=== PATIENT | male | born 1935 | race Caucasian/White ===

== ENCOUNTER 2019-02-14 15:11 | Emergency (ER) | payer MEDICARE, SELFPAY ==
[2019-02-14 15:30] VITALS: BP 169/93; PULSE 89; RESP 18; TEMP 36.7; O2SAT 95; BMI 24.4
[2019-02-14 15:39] LABS: Basophils % 0.4 % (0.1-2.0); Eosinophils # 0.2 K/mm3 (0.0-0.4); Eosinophils % 2.6 % (0.1-12.0); Hematocrit 40.7 % (42.0-52.0); Hemoglobin 13.7 g/dL (14.1-18.0); Lymphocytes # 1.7 K/mm3 (0.7-4.5); Lymphocytes % 22.4 % (10-50); Mean Corpuscular HGB Conc 33.6 g/dL (31.8-35.4); Mean Corpuscular Hemoglobin 31.2 pg (27.0-31.2); Mean Corpuscular Volume 92.9 fl (80-94); Mean Platelet Volume 7.7 fl (7.4-10.4); Monocytes # 0.5 K/mm3 (0.1-1.0); Monocytes % 6.1 % (1.7-9.3); Neutrophils # 5.1 K/mm3 (1.8-7.8); Neutrophils % 68.5 % (37.0-80.0); Platelet Count 217 K/mm3 (142-424); Red Blood Count 4.38 M/mm3 (4.60-6.20); White Blood Count 7.4 K/mm3 (4.8-10.8)
--- NOTE | 2019-02-14 15:48 | [facility].EDGENADL ---
ED Disposition Clinical Impression: Labyrinthitis Disposition: Home, Self-Care Condition on Discharge: Good Instructions: DI for Labyrinthitis Prescriptions: Meclizine HCl [Meclizine 12.5mg Tab] 12.5 mg PO TID PRN 7 Days #20 tab PRN Reason: Dizziness Referrals: Edwardo Sarkar [Primary Care Provider] - Time of Disposition: 16:26 - Critical Care Critical Care Time: No Attestation: On 02/14/19, the high probability of a clinically significant, sudden or life threatening deterioration of the following system(s) required my full and direct attention, intervention and personal management. The time I documented below is in addition to time spent performing reported procedures but includes the following listed in this critical care notation. Medical Decision Making - Medical Records Medical records reviewed: Yes: I reviewed the patient's medical records. - Sae Inquiry Pt receiving controlled substance: No Sae was queried for this patient: No Vital Signs: 02/14/19 15:30 Temperature 98.1 F Temperature Source Oral Pulse Rate [Right Apical] 89 Respiratory Rate 18 Blood Pressure [Right Arm] 169/93 H Blood Pressure Mean [Right Arm] 118 02 Sat by Pulse Oximetry 95 Oxygen Delivery Method Room Air - Lab Data Lab results reviewed: Yes: I reviewed the patient's lab results. Lab Results 02/14/19 15:25: WBC 7.4, RBC 4.38 L, Hgb 13.7 L, Hct 40.7 L, MCV 92.9, MCH 31.2, MCHC 33.6, RDW 12.0, Plt Count 217, MPV 7.7, Neut % (Auto) 68.5, Lymph % (Auto) 22.4, [place] % (Auto) 6.1, Eos % (Auto) 2.6, Baso % (Auto) 0.4, Neut # (Auto) 5.1, Lymph # (Auto) 1.7, [place] # (Auto) 0.5, Eos # (Auto) 0.2, Baso # (Auto) 0.0 02/14/19 15:25: Sodium 137, Potassium 4.0, Chloride 103, Carbon Dioxide 26, Anion Gap 12.0, BUN 20 H, Creatinine 0.81, Estimated Creat Clear 64, Estimated GFR 91, Est GFR ( Amer) 110, Glucose 154 H, Calcium 9.1, Total Bilirubin 0.4, AST 17, ALT 25, Alkaline Phosphatase 53, Troponin I < 0.02, Total Protein 7.6, Albumin 3.7, Globulin 3.9 H, Albumin/Globulin Ratio 0.9 L 02/14/19 16:29: Urine Color Yellow, Urine Appearance Clear, Urine pH 6.0, Ur Specific [place] 1.020, Urine Protein Negative, Urine Glucose (UA) Negative, Urine Ketones Negative, Urine Blood Negative, Urine Nitrate Negative, Urine Bilirubin Negative, Urine Urobilinogen 0.2, Ur Leukocyte Esterase Negative Result diagrams: 02/14/19 15:25 02/14/19 15:25 Orders (Tests/Meds): ED MEDICATIONS Generic Name Dose Route Start Last Admin Trade Name Freq PRN Reason Stop Dose Admin Sodium Chloride 1,000 mls @ 999 mls/hr 02/14/19 16:30 02/14/19 16:17 Sod Chlor 0.9% 1000ml Bag IV 02/14/19 17:30 999 mls/hr .Q1H1M TITI Administration ORDERS Category Date Time Status UA [Urinalysis and Microscopic] Stat Lab 02/14/19 16:29 Results General Adult HPI - General Chief complaint: Weakness Stated complaint: Weakness, dizziness, cannot stand, legs weak Time Seen by Provider: 02/14/19 15:48 Mode of Arrival: Ambulatory Source of Information: Patient Limitations: No Limitations Description of Symptoms (Recalled from ER Triage Doc. by RN): PT ARRIVED TO THE ED WITH C/O LIGHT-HEADED AND DIZZINESS FOR ABOUT A WEEK. - Related Data Home Medications Medication Instructions Recorded Confirmed aspirin 81 mg tablet,delayed 81 mg PO DAILY tab 01/09/18 01/15/19 release finasteride 5 mg tablet 5 mg PO DAILY tab 01/09/18 01/15/19 jgmcoxkl-vas-ohrji acid 300 tab PO DAILY tab 01/09/18 01/15/19 mcg-lycopene 600 mcg-lutein 300 mcg tablet tamsulosin 0.4 mg capsule 0.4 mg PO DAILY cap 01/09/18 01/15/19 Previous Rx's Medication Instructions Recorded Meclizine HCl [Meclizine 12.5mg 12.5 mg PO TID PRN 7 Days #20 tab 02/14/19 Tab] Allergies Allergy/AdvReac Type Severity Reaction Status Date / Time No Known Allergies Allergy Unknown Uncoded 01/15/19 11:10 [facility] History - Hepatitis A Screen Drug use history?: No High risk se
--- NOTE | 2019-02-14 15:51 | ED_ITS ---
ED Disposition Clinical Impression: Labyrinthitis Disposition: Home, Self-Care Condition on Discharge: Good Instructions: DI for Labyrinthitis Prescriptions: Meclizine HCl [Meclizine 12.5mg Tab] 12.5 mg PO TID PRN 7 Days #20 tab PRN Reason: Dizziness Referrals: Edwardo Sarkar [Primary Care Provider] - Time of Disposition: 16:26 - Critical Care Critical Care Time: No Attestation: On 02/14/19, the high probability of a clinically significant, sudden or life threatening deterioration of the following system(s) required my full and direct attention, intervention and personal management. The time I documented below is in addition to time spent performing reported procedures but includes the following listed in this critical care notation. Medical Decision Making - Medical Records Medical records reviewed: Yes: I reviewed the patient's medical records. - Sae Inquiry Pt receiving controlled substance: No Sae was queried for this patient: No Vital Signs: 02/14/19 15:30 Temperature 98.1 F Temperature Source Oral Pulse Rate [Right Apical] 89 Respiratory Rate 18 Blood Pressure [Right Arm] 169/93 H Blood Pressure Mean [Right Arm] 118 02 Sat by Pulse Oximetry 95 Oxygen Delivery Method Room Air - Lab Data Lab results reviewed: Yes: I reviewed the patient's lab results. Lab Results 02/14/19 15:25: WBC 7.4, RBC 4.38 L, Hgb 13.7 L, Hct 40.7 L, MCV 92.9, MCH 31.2, MCHC 33.6, RDW 12.0, Plt Count 217, MPV 7.7, Neut % (Auto) 68.5, Lymph % (Auto) 22.4, [place] % (Auto) 6.1, Eos % (Auto) 2.6, Baso % (Auto) 0.4, Neut # (Auto) 5.1, Lymph # (Auto) 1.7, [place] # (Auto) 0.5, Eos # (Auto) 0.2, Baso # (Auto) 0.0 02/14/19 15:25: Sodium 137, Potassium 4.0, Chloride 103, Carbon Dioxide 26, Anion Gap 12.0, BUN 20 H, Creatinine 0.81, Estimated Creat Clear 64, Estimated GFR 91, Est GFR ( Amer) 110, Glucose 154 H, Calcium 9.1, Total Bilirubin 0.4, AST 17, ALT 25, Alkaline Phosphatase 53, Troponin I < 0.02, Total Protein 7 .6, Albumin 3.7, Globulin 3.9 H, Albumin/Globulin Ratio 0.9 L 02/14/19 16:29: Urine Color Yellow, Urine Appearance Clear, Urine pH 6.0, Ur Specific [place] 1.020, Urine Protein Negative, Urine Glucose (UA) Negative, Urine Ketones Negative, Urine Blood Negative, Urine Nitrate Negative, Urine Bilirubin Negative, Urine Urobilinogen 0.2, Ur Leukocyte Esterase Negative Result diagrams: 02/14/19 15:25 02/14/19 15:25 Orders (Tests/Meds): ED MEDICATIONS Generic Name Dose Route Start Last Admin Trade Name Freq PRN Reason Stop Dose Admin Sodium Chloride 1,000 mls @ 999 mls/hr 02/14/19 16:30 02/14/19 16:17 Sod Chlor 0.9% 1000ml Bag IV 02/14/19 17:30 999 mls/hr .Q1H1M TITI Administration ORDERS Category Date Time Status UA [Urinalysis and Microscopic] Stat Lab 02/14/19 16:29 Results General Adult HPI - General Chief complaint: Weakness Stated complaint: Weakness, dizziness, cannot stand, legs weak Time Seen by Provider: 02/14/19 15:48 Mode of Arrival: Ambulatory Source of Information: Patient Limitations: No Limitations Description of Symptoms (Recalled from ER Triage Doc. by RN): PT ARRIVED TO THE ED WITH C/O LIGHT-HEADED AND DIZZINESS FOR ABOUT A WEEK. - Relate
[2019-02-14 15:52] LABS: Alanine Aminotransferase 25 U/L (12-78); Albumin Level 3.7 gm/dL (3.4-5.0); Albumin/Globulin Ratio 0.9 (1.1-1.8); Alkaline Phosphatase 53 U/L (46-116); Aspartate Amino Transferase 17 U/L (15-37); Bilirubin,Total 0.4 mg/dL (0.2-1.0); Blood Urea Nitrogen 20 mg/dL (7-18); Calcium 9.1 mg/dL (8.5-10.1); Carbon Dioxide 26 mmol/L (21.0-32.0); Chloride 103 mmol/L (98-107); Creatinine Clearance Estimated 64 mL/min (50-200); Creatinine,Serum 0.81 mg/dL (0.70-1.30); Estimated Glomerular Filt Rate 91 ml/min (>60); GFR (African American) 110 ML/MIN (>60); Globulin 3.9 gm/dl (1.3-3.2); Glucose 154 mg/dL (74-106); Sodium 137 mmol/L (136-145); Total Protein,Serum 7.6 gm/dL (6.4-8.2); Troponin I < 0.02 ng/ml (0.00-0.06)
[2019-02-14 16:07] VITALS: BP 164/87; PULSE 82; O2SAT 96
--- NOTE | 2019-02-14 16:23 | CT_ITS ---
CT head/brain wo con HISTORY: Dizziness, unsteady balance ITS.REASON: dizziness, weakness, fall ORDERING PHYSICIAN: Mohan Gross MD PATIENT AGE: 83 years COMPARISON: None TECHNIQUE: Axial images obtained without contrast. Brain and bone windows reviewed. All CT scans at the facility use one or more dose reduction, viz: automated exposure control, ma/kV adjustment per patient size (including targeted exams where dose is matched to indication, i.e. head), or iterative reconstruction technique. FINDINGS: No midline shift, mass effect, intracranial hemorrhage, hydrocephalus, or extra-axial fluid collection is evident. There is generalized atrophy The calvarium has an unremarkable appearance. No mastoid effusion. No sinus air-fluid levels.. IMPRESSION: No acute intercranial findings, mild generalized atrophy
[2019-02-14 16:30] LABS: Microscopic, Urine URINE MICROSCOPIC (MICROSCOPIC)
[2019-02-14 16:31] LABS: Appearance,Urine CLEAR (Clear); Bilirubin,Urine Negative (Negative); Blood, Urine Negative (Negative); Color,Urine YELLOW (Yellow); Glucose,Urine (UA) Negative (Negative); Ketones,Urine Negative (Negative); Leukocyte Esterase,Urine Negative (Negative); Nitrate,Urine Negative (Negative); Protein,Urine Negative (Negative); Urobilinogen,Urine 0.2 EU/dl (0.2)
[2019-02-14 16:48] VITALS: BP 159/70; PULSE 78; O2SAT 95
[2019-02-14 17:24] VITALS: BP 161/85; PULSE 81; O2SAT 97
[2019-02-14 17:31] LABS: WBC,Urine Occasional #/hpf (0-3)
[2019-02-14 17:32] LABS: Bacteria,Urine Trace /lpf
[2019-02-14 17:41] VITALS: BP 158/73; PULSE 77; O2SAT 97
[2019-02-14 17:57] VITALS: BP 138/66; PULSE 82; RESP 18; TEMP 36.6; O2SAT 100
[2019-02-20 15:20] LABS: POC Glucose,Bedside 171 (70-110)
== END 2019-02-14 17:59 | disposition home or self-care (01) ==
PROVIDERS: Emergency Provider Emergency Medicine; PCP Internal Medicine
DX: H83.03 Labyrinthitis, bilateral (principal)
CPT/HCPCS: 70450; 80053; 81001; 82962; 84484; 85025; 93005; 96365; 99284

== ENCOUNTER → 2019-09-10 11:12 | Outpatient (CLI) | payer MEDICARE, SELFPAY ==
--- NOTE | 2019-09-10 11:20 | XR_ITS ---
PROCEDURE: XR LUMBAR SPINE MIN 4V CLINICAL INDICATION: LUMBAGO W/SCIATICA,NIRAJ LEG WEAKNESS COMPARISON: XR CHEST 2V from 09/09/2019 FINDINGS: Normal alignment. No fracture or dislocation. Mild degenerative disc disease L4-5 L1-L2 and L2-L3. mild facet arthritic change L5-S1. Minimal lumbar scoliosis convex right IMPRESSION: Degenerative changes as described Dictated by: Mike Olivera MD 09/10/2019 11:54 Electronically signed by Mike Olivera MD in [place] 09/10/2019 11:54
[2019-09-10 11:24] LABS: Basophils % 0.3 % (0.1-2.0); Eosinophils # 0.3 K/mm3 (0.0-0.4); Eosinophils % 2.3 % (0.1-12.0); Hematocrit 38.4 % (42.0-52.0); Hemoglobin 12.7 g/dL (14.1-18.0); Lymphocytes # 1.3 K/mm3 (0.7-4.5); Mean Corpuscular Hemoglobin 31.2 pg (27.0-31.2); Mean Corpuscular Volume 94.8 fl (80-94); Mean Platelet Volume 7.7 fl (7.4-10.4); Monocytes # 0.8 K/mm3 (0.1-1.0); Monocytes % 7.5 % (1.7-9.3); Neutrophils # 8.7 K/mm3 (1.8-7.8); Neutrophils % 77.8 % (37.0-80.0); Platelet Count 204 K/mm3 (142-424); Red Blood Count 4.05 M/mm3 (4.60-6.20); Red Cell Distribution Width 11.9 % (11.5-17.5); White Blood Count 11.1 K/mm3 (4.8-10.8)
== END ==
PROVIDERS: PCP Internal Medicine; Visit Provider Internal Medicine
DX: R53.1 Weakness (principal); M54.42 Lumbago with sciatica, left side
CPT/HCPCS: 72110; 85025

== ENCOUNTER → 2019-12-11 09:23 | Outpatient (CLI) | payer MEDICARE, SELFPAY | PROVIDERS: PCP Internal Medicine; Visit Provider Internal Medicine | DX: I63.9 Cerebral infarction, unspecified (principal); R00.0 Tachycardia, unspecified | CPT/HCPCS: 93270 ==

== ENCOUNTER → 2021-06-28 14:05 | Outpatient (CLI) | payer MEDICARE, SELFPAY ==
[2021-06-28 14:59] LABS: Hemoglobin A1C 6.8 % (4.0-6.0)
== END ==
PROVIDERS: Visit Provider Internal Medicine
DX: E11.9 Type 2 diabetes mellitus without complications (principal)
CPT/HCPCS: 83036

== ENCOUNTER → 2021-06-29 16:02 | Outpatient (CLI) | payer MEDICARE, SELFPAY ==
[2021-06-29 16:06] LABS: Microscopic, Urine URINE MICROSCOPIC (MICROSCOPIC)
[2021-06-29 16:20] LABS: Appearance,Urine CLOUDY (Clear); Bilirubin,Urine Negative (Negative); Blood, Urine TRACE-I (Negative); Color,Urine YELLOW (Yellow); Glucose,Urine (UA) Negative (Negative); Ketones,Urine Negative (Negative); Leukocyte Esterase,Urine 3+ (Negative); Nitrate,Urine Negative (Negative); Protein,Urine TRACE (Negative); Specific Gravity, Urine 1.015 (1.005-1.030)
[2021-06-29 16:36] LABS: Bacteria,Urine Trace /lpf; WBC,Urine TNTC #/hpf (0-3)
== END ==
PROVIDERS: Visit Provider Internal Medicine
DX: N39.0 Urinary tract infection, site not specified (principal); B95.7 Other staphylococcus as the cause of diseases classified elsewhere
CPT/HCPCS: 81001; 87086; 87186